=== PATIENT | female | born 1960 | race Caucasian/White ===

== ENCOUNTER 2016-05-31 20:09 | Emergency (ER) | payer BC ==
[~2016-05-31] VITALS: Ht 157.5 cm; Wt 116.2 kg
[~2016-05-31 20:09] MED LIST: ERGO1CAP35 PO; HYDR-5688 PO
[2016-05-31 20:13] VITALS: TEMP 36.9; Ht 157.5 cm; Wt 116.2 kg
[2016-05-31 21:20] LABS: BASO % 0.3 %; BASO ABS # 0.02 K/uL (0-0.2); COMPLETE YES; HEMATOCRIT 41.3 % (37-47); IG% 0.1 %; LYMPH % 32.1 %; LYMPH ABS # 2.52 K/uL (1.2-3.4); MEAN CORPUSCULAR HEMOGLOBIN 32.3 pg (25-34); MEAN CORPUSCULAR HGB CONC 35.1 g/dl (32-36); MEAN PLATELET VOLUME 9.4 fL (7.4-10.4); NEUT % 59.5 %; PLATELET COUNT 332 K/uL (130-400); RED BLOOD COUNT 4.49 M/uL (4.2-5.4); WHITE BLOOD COUNT 7.84 K/uL (4.8-10.8)
[2016-05-31 21:27] LABS: ALT/SGPT 27 U/L (12-78); BLOOD UREA NITROGEN 13 mg/dl (7-18); BUN/CREATININE RATIO 14.5 (10-20); CARBON DIOXIDE 30 mmol/L (21-32); CHLORIDE 106 mmol/L (98-107); CREATININE 0.87 mg/dl (0.60-1.20); GLUCOSE 96 mg/dl (70-99); POTASSIUM 3.5 mmol/L (3.5-5.1); SODIUM 141 mmol/L (136-145)
[2016-05-31 21:30] LABS: ALKALINE PHOSPHATASE 72 U/L (45-117); AST/SGOT 17 U/L (15-37)
[2016-05-31 21:45] LABS: MANUAL MICROSCOPIC REQUIRED? NO; URINE APPEARANCE CLEAR (CLEAR); URINE BILIRUBIN NEG (NEG); URINE COLOR YELLOW; URINE NITRITE NEG (NEG); URINE SPECIFIC GRAVITY >= 1.030 (1.000-1.030); UROBILINOGEN NEG (NEG)
[2016-05-31 21:46] LABS: REVIEW REQ? NO
--- NOTE | 2016-05-31 21:50 | DIAGNOSTIC IMAGING REPORT ---
CHEST AND ABDOMEN 2 VIEWS HISTORY: Left lower quadrant abdominal pain. COMPARISON: FINDINGS: No pneumothorax. No pleural effusions. The heart is normal in size. No focal lung consolidations to suggest pneumonia. A 7 mm nodular density within the periphery of the left upper lobe. No pneumoperitoneum. No pneumatosis. No renal or ureteral calculi. Punctate calcifications within the deep pelvis favor phleboliths but are nonspecific. The bowel gas pattern is unremarkable. No evidence for bowel obstruction. IMPRESSION: 1. No acute process within the chest. 2. Unremarkable bowel gas pattern. No evidence for bowel obstruction. 3. A 7 mm nodular density within the left upper lobe is likely due to the overlapping ribs. Follow-up nonemergent PA and lateral views of the chest is recommended for confirmation. Electronically signed by: Low Koehler M.D. 05/31/2016 9:48 PM Dictated Date/Time: 05/31/2016 9:43 PM
[2016-05-31 21:53] LABS: CALCIUM 9.1 mg/dl (8.5-10.1)
[2016-05-31 23:40] VITALS: BP 118/80; PULSE 78; O2SAT 97
--- NOTE | 2016-06-01 01:41 | EMERGENCY ROOM VISIT NOTE ---
History Report prepared by Krissy: Crystal Hooks Under the Supervision of: Dr. Reginaldo Ortega M.D. First contact with patient: 21:00 Chief Complaint: ABDOMINAL PAIN Stated Complaint: VAGINAL PAIN, PAIN LEFT SIDE, CONSTIPATED Nursing Triage Summary: see triage note History of Present Illness The patient is a 55 year old female who presents to the Emergency Room with complaints of worsening abdominal pain for the past 2 days. She has been constipated and bloated for the past 3 days, which she states is very unusual for her. She states "it feels like I got gas pocket." The patient states that today she started experiencing sharp pains shooting up from her vagina. She also reports burning with urination. She rates her pain as a 6/10 in severity. The patient denies vomiting, fever, and abnormal vaginal discharge. She is sexually active with her only. She had a colonoscopy a couple of years ago that was normal. She denies any history of diverticulitis or diverticulosis. Source of History: patient Onset: 2 days ago Position: abdomen Symptom Intensity: 6/10 Quality: other (bloated) Timing: worsening Associated Symptoms: + urinary symptoms, No fevers, No vomiting Note: Pt notes constipation. Pt denies abnormal vaginal discharge. Review of Systems See HPI for pertinent positives & negatives. A total of 10 systems reviewed and were otherwise negative. Past Medical & Surgical Medical Problems: (1) ASTHMA, UNSPECIFIED (2) DIAB SUNITA WO COMPL, TYPE II OR UNSPEC TYPE, NOT UNCNTRLD (3) Dysmetabolic Syndrome X (4) FAM HX-DIABETES MELLITUS (5) FAM HX-ISCHEM HEART DIS (6) FAM HX-NEUROLOG DIS NEC (7) FAM HX-OTH KIDNEY DISEASES (8) FAMILY HISTORY OF OTHER CARDIOVASCULAR DISEASES (9) FAMILY HISTORY OF OTHER CARDIOVASCULAR DISEASES (10) FAMILY HX-MALIGNANCY NOS (11) Fracture of great toe (12) HYPERTENSION NOS (13) Hypertension Nos (14) Kidney stone (15) Nondisplaced fracture of right great toe (16) Obesity, Nos (17) TOBACCO USE DISORDER Surgical Problems: (1) section (2) unspecified eye surgery Family History No pertinent history stated. Social History Smoking Status: Never Smoker Alcohol Use: none Marital Status: Housing Status: lives with family Occupation Status: employed Current/Historical Medications Scheduled Ergocalciferol (Vitamin D Cap), 50,000 INTER.UNIT PO WK Scheduled PRN Hydrocodone/Acetaminophen 5MG/325MG ([place] 5MG/325MG), 1 TABLET PO Q6H PRN for Pain Allergies Coded Allergies: Lactose Intolerance (Verified Allergy, Intermediate, GI SYMPTOMS, 05/01/13) Aspirin (Unverified Adverse Reaction, Unknown, MAKES ME SICK, 05/01/13) Physical Exam Vital Signs Date Time Temp Pulse Resp B/P Pulse Ox O2 Delivery O2 Flow Rate FiO2 05/31/16 23:40 78 20 118/80 97 Room Air 05/31/16 20:13 36.9 107 16 132/78 96 Room Air Physical Exam Constitutional: Vital signs reviewed. Eyes: Pupils are equal round reactive to light. Conjunctiva are noninjected. ENT: Pharynx is clear without erythema or exudate. Mucous membranes are moist. Neck supple without meningeal signs. Respiratory: Clear to auscultation bilaterally. Breath sounds are equal bilaterally. Cardiovascular: Regular rate and rhythm. No rubs or gallops. GI: Soft, nondistended and nontender. Bowel sounds are present. Musculoskeletal: No peripheral edema. Integumentary: No cyanosis. Neurological: The patient is awake and alert. No focal deficits. Psychiatric: Normal affect. Medical Decision & Procedures ER Provider Diagnostic Interpretation: Radiology results as stated below per my review and the radiologist's interpretation: CHEST AND ABDOMEN 2 VIEWS HISTORY: Left lower quadrant abdominal pain. COMPARISON: FINDINGS: No pneumothorax. No pleural effusions. The heart is normal in size. No focal lung consolidations to suggest pneumonia. A 7 mm nodular density within the periphery of the left upper lobe. No pneumoperitoneum. No pneumatosis. No renal or ureteral calculi. Punctate calcifications within the deep pelvis favor phleboliths but are nonspecific. The bowel gas pattern is unremarkable. No evidence for bowel obstruction. IMPRESSION: 1. No acute process within the chest. 2. Unremarkable bowel gas pattern. No evidence for bowel obstruction. 3. A 7 mm nodular density within the left upper lobe is likely due to the overlapping ribs. Follow-up nonemergent PA and lateral views of the chest is recommended for confirmation. Electronically signed by: Low Koehler M.D. 05/31/2016 9:48 PM Dictated Date/Time: 05/31/2016 9:43 PM Laboratory Results 05/31/16 20:44 Red Blood Count 4.49, Mean Corpuscular Volume 92.0, Mean Corpuscular Hemoglobin 32.3, Mean Corpuscular Hemoglobin Concent 35.1, Mean Platelet Volume 9.4, Neutrophils (%) (Auto) 59.5, Lymphocytes (%) (Auto) 32.1, Monocytes (%) (Auto) 6.0, Eosinophils (%) (Auto) 2.0, Basophils (%) (Auto) 0.3, Neutrophils # (Auto) 4.66, Lymphocytes # (Auto) 2.52, Monocytes # (Auto) 0.47, Eosinophils # (Auto) 0.16, Basophils # (Auto) 0.02 05/31/16 20:44 Test 05/31/16 20:44 05/31/16 20:45 White Blood Count 7.84 K/uL (4.8-10.8) Red Blood Count 4.49 M/uL (4.2-5.4) Hemoglobin 14.5 g/dL (12.0-16.0) Hematocrit 41.3 % (37-47) Mean Corpuscular Volume 92.0 fL (80-100) Mean Corpuscular Hemoglobin 32.3 pg (25-34) Mean Corpuscular Hemoglobin Concent 35.1 g/dl (32-36) Platelet Count 332 K/uL (130-400) Mean Platelet Volume 9.4 fL (7.4-10.4) Neutrophils (%) (Auto) 59.5 % Lymphocytes (%) (Auto) 32.1 % Monocytes (%) (Auto) 6.0 % Eosinophils (%) (Auto) 2.0 % Basophils (%) (Auto) 0.3 % Neutrophils # (Auto) 4.66 K/uL (1.4-6.5) Lymphocytes # (Auto) 2.52 K/uL (1.2-3.4) Monocytes # (Auto) 0.47 K/uL (0.11-0.59) Eosinophils # (Auto) 0.16 K/uL (0-0.5) Basophils # (Auto) 0.02 K/uL (0-0.2) RDW Standard Deviation 44.7 fL (36.4-46.3) RDW Coefficient of Variation 13.3 % (11.5-14.5) Immature Granulocyte % (Auto) 0.1 % Immature Granulocyte # (Auto) 0.01 K/uL (0.00-0.02) Anion Gap 5.0 mmol/L (3-11) Est Creatinine Clear Calc Drug Dose 89.3 ml/min Estimated GFR () 87.5 Estimated GFR (Non- 75.5 BUN/Creatinine Ratio 14.5 (10-20) Calcium Level 9.1 mg/dl (8.5-10.1) Total Bilirubin 0.2 mg/dl (0.2-1) Direct Bilirubin < 0.1 mg/dl (0-0.2) Aspartate Amino Transf (AST/SGOT) 17 U/L (15-37) Alanine Aminotransferase (ALT/SGPT) 27 U/L (12-78) Alkaline Phosphatase 72 U/L (45-117) Total Protein 7.5 gm/dl (6.4-8.2) Albumin 3.8 gm/dl (3.4-5.0) Lipase 193 U/L (73-393) Urine Color YELLOW Urine Appearance CLEAR (CLEAR) Urine pH 6.0 (4.5-7.5) Urine Specific [place] >= 1.030 (1.000-1.030) Urine Protein NEG (NEG) Urine Glucose (UA) NEG (NEG) Urine Ketones NEG (NEG) Urine Occult Blood NEG (NEG) Urine Nitrite NEG (NEG) Urine Bilirubin NEG (NEG) Urine Urobilinogen NEG (NEG) Urine Leukocyte Esterase NEG (NEG) Laboratory results as reviewed by me. ED Course 2100: The patient was evaluated in room C10. A complete history and physical exam was performed. 2259: I reassessed the patient at this time. She feels bloated and has cramping pain that feels like gas. She will be getting an enema. 2343: I reassessed the patient at this time. She had a small bowel movement and feels a little better. She urinated copiously and denies vaginal pain or burning with urination at this time. She does not wish to have a CT and wants to go home. I discussed the results and treatment plan with the patient. I answered all pertaining questions that she had. She expressed understanding and verbalized agreement. The patient will be discharged home. Medical Decision This is a 55-year-old female who presents with abdominal pain and dysuria. Differential diagnosis includes constipation, bowel obstruction, partial bowel obstruction, mass, diverticulitis, UTI. I did perform a limited focused review of portions of the patient's old chart on the electronic medical record. The patient has had no recent pertinent visits to this hospital. I did evaluate the patient as noted above. The patient is presenting with constipation for 3 days which she states is very abnormal for her. She has a gas-like pain in her left lower abdomen. She does not have any tenderness in that area to suggest acute surgical process. IV access was established. I did order and personally review the patient's abdominal and chest x-rays as described above. There is no evidence of obstruction. I did order and review the patient's blood work as noted in the electronic medical record. Her white blood cell count is not elevated. LFTs are unremarkable. I did order a urinalysis which shows no signs of infection. I did discuss the test results with the patient. I did order a soapsuds enema. She was given the enema and had a small bowel movement after which she stated she felt better but still had some gassy pain. She also stated that she urinated copiously and did not have any pain on urination. I did discuss the possibility of obtaining a CT scan of the abdomen but the patient wanted to go home. She stated that she would return should she have any worsening symptoms. She was advised follow closely with her doctor and continue MiraLAX at home as well as to eat light meals. She was discharged in good condition. Impression Primary Impression: Left sided abdominal pain Additional Impression: Constipation Scribe Attestation The scribe's documentation has been prepared under my direct and personally reviewed by me in its entirety. I confirm that the note above accurately reflects all work, treatment, procedures, and medical decision making performed by me. Departure Information Dispostion Home / Self-Care Referrals RV. Frederick MD (PCP) Forms Call Back Authorization, HOME CARE DOCUMENTATION FORM, IMPORTANT VISIT INFORMATION Patient Instructions Constipation, ED Abd Pain Unkn Cause Fem, My [facility] Additional Instructions You have been examined and treated today on an emergency basis only. This is not a substitute for, or an effort to provide, complete comprehensive medical care. It is impossible to recognize and treat all injuries or illnesses in a single emergency department visit. It is therefore important that you follow up closely with your physician. Call as soon as possible for an appointment. Return for worsening symptoms or if you develop fever, vomiting, or any other concerning symptoms. Take [id number] MiraLAX and eat light meals with lots of fluids. Problem Qualifiers Additional Impression: Constipation Constipation type: unspecified constipation type Qualified Codes: K59.00 - Constipation, unspecified
== END 2016-05-31 23:55 | disposition home or self-care (01) ==
LOC: C.EDB 20:10 → C.EDC 23:55
DX: R10.9 Unspecified abdominal pain (principal); K59.00 Constipation, unspecified; E11.9 Type 2 diabetes mellitus without complications; I10 Essential (primary) hypertension; J45.909 Unspecified asthma, uncomplicated; F17.200 Nicotine dependence, unspecified, uncomplicated; Z87.442 Personal history of urinary calculi; Z87.81 Personal history of (healed) traumatic fracture; Z98.890 Other specified postprocedural states; Z88.6 Allergy status to analgesic agent; Z91.011 Allergy to milk products

== ENCOUNTER → 2016-09-19 | Outpatient (CLI) | payer BC ==
[2016-09-19 13:40] LABS: BLOOD UREA NITROGEN 13 mg/dl (7-18); BUN/CREATININE RATIO 19.3 (10-20); CALCIUM 8.7 mg/dl (8.5-10.1); CARBON DIOXIDE 25 mmol/L (21-32); CHLORIDE 110 mmol/L (98-107); CREATININE 0.68 mg/dl (0.60-1.20); GLUCOSE 91 mg/dl (70-99); POTASSIUM 3.6 mmol/L (3.5-5.1); SODIUM 142 mmol/L (136-145)
[2016-09-19 13:51] LABS: CHOLESTEROL 238 mg/dl (0-200); CHOLESTEROL/HDL RATIO 4.6; HDL CHOLESTEROL 52 mg/dl; LDL CHOLESTEROL CALCULATED 161 mg/dl; TRIGLYCERIDES 127 mg/dl (0-150); VERY LOW DENSITY LIPOPROT CALC 25 mg/dl
== END | disposition home or self-care (01) ==
LOC: C.LAB1850 11:31
PROVIDERS: ATTEND Internal Medicine
DX: E53.8 Deficiency of other specified B group vitamins (principal); E55.9 Vitamin D deficiency, unspecified; Z11.59 Encounter for screening for other viral diseases; E78.5 Hyperlipidemia, unspecified; E88.81 Metabolic syndrome and other insulin resistance

== ENCOUNTER → 2016-10-31 | Outpatient (CLI) | payer BC | END | disposition home or self-care (01) | LOC: C.PAPS 14:58 | PROVIDERS: ATTEND Obstetrics & Gynecology | DX: Z01.419 Encounter for gynecological examination (general) (routine) without abnormal findings (principal) ==

== ENCOUNTER 2016-11-24 23:52 | Emergency (ER) | payer OTHER, BC ==
[~2016-11-24] VITALS: Ht 158.8 cm; Wt 121.3 kg
[2016-11-25 00:01] VITALS: TEMP 37.2; Ht 158.8 cm; Wt 121.3 kg
[2016-11-25] MEDS ORDERED: PROPARACAINE HCL 0.5% OP SOLN 15 ML BTL OP STA (00:07)
[2016-11-25] MEDS ORDERED: PROPARACAINE HCL 0.5% OP SOLN 15 ML BTL ONE (00:12)
[2016-11-25] MEDS ORDERED: CIPROFLOXACIN HCL 0.3% OP SOLN 2.5 ML BTL OP STA (00:23)
[2016-11-25] MEDS ORDERED: OXYCODONE IR HOME PACK PO ONE (00:30)
--- NOTE | 2016-11-25 00:34 | EMERGENCY ROOM VISIT NOTE ---
ED Visit Note First contact with patient: 00:07 CHIEF COMPLAINT: Eye pain HISTORY OF PRESENT ILLNESS: This 56 yo patient presents to the emergency department with daughter complaining of pain in the right eye after getting debris in it at work last night. This is a work-related injury. There has been a constant moderate pain and irritation, redness and tearing in the eye. There is a mild blurring of vision at times and light bothers the eye. The vision has clear been decreased over all. The patient does not wear contacts. The patient rates the pain as irritating and 6/10. The patient has not had previous injuries to this eye. Tetanus shot is up to date. REVIEW OF SYSTEMS: A 6 system review of systems was completed with positives and pertinent negatives listed in the HPI. ALLERGIES:ASA, reviewed MEDICATIONS:reviewed PMH: Medical Problems: (1) ASTHMA, UNSPECIFIED Status: Chronic (2) DIAB SUNITA WO COMPL, TYPE II OR UNSPEC TYPE, NOT UNCNTRLD Status: Chronic (3) Dysmetabolic Syndrome X Status: Chronic (4) FAM HX-DIABETES MELLITUS Status: Chronic (5) FAM HX-ISCHEM HEART DIS Status: Chronic (6) FAM HX-NEUROLOG DIS NEC Status: Chronic (7) FAM HX-OTH KIDNEY DISEASES Status: Chronic (8) FAMILY HISTORY OF OTHER CARDIOVASCULAR DISEASES Status: Chronic (9) FAMILY HISTORY OF OTHER CARDIOVASCULAR DISEASES Status: Chronic (10) FAMILY HX-MALIGNANCY NOS Status: Chronic (11) Fracture of great toe Status: Resolved (12) HYPERTENSION NOS Status: Chronic (13) Hypertension Nos Status: Chronic (14) Kidney stone Status: Resolved (15) Nondisplaced fracture of right great toe Status: Resolved (16) Obesity, Nos Status: Chronic (17) TOBACCO USE DISORDER Status: Resolved Surgical Problems: (1) section Status: Resolved (2) unspecified eye surgery Status: Resolved SOCIAL HISTORY: no drug use PHYSICAL EXAM: Vital Signs: Reviewed Nurse's notes, vital signs stable. Visual acuity reviewed from nursing. GENERAL: This is a pleasant female, in no acute distress, but who is uncomfortable from the eye problem. Well-developed well- nourished. EYES: The pupils are equal round and reactive to light and accommodation. EOMs are full and without tenderness. There is discharge of clear tears from the right eye which is injected. There is no foreign body visible under the eyelid even after lid eversion. Funduscopic exam reveals no hemorrhages, papilledema, or other abnormalities. No foreign body was seen embedded in the cornea under slit lamp exam. The cornea was clear and no hyphema was seen. Fluorescein uptake was observed with ultraviolet light significant for 2 corneal abrasions 2 mm, at 6:00 EMERGENCY DEPARTMENT COURSE: I examined the patient. Alcaine 2 drops were placed in the patient's right eye. A slit lamp exam was performed as above. Ciloxan two drops was placed in the patient's right eye. Patient was advised to follow-up with ophthalmology in a few days or here in the ER sooner for worsening signs or symptoms or as needed. The patient was discharged home in good condition. Patient states she is not allergic to Motrin. She just gets nauseous with aspirin. She takes Motrin on a routine basis. DIAGNOSIS: Corneal abrasion of the right eye DISCHARGE INSTRUCTIONS AND TREATMENT: Use Ciloxin two drops in right eye every two hours while awake for two days; then two drops every four hours while awake for 5 days. Oxycodone (OxyIR) 5mg: Take 1-2 pills every four hours for breakthrough pain. Avoid alcohol, operating machinery or dangerous equipment, working on ladders or roofs, DRIVING, or situations where being under the influence may be dangerous. It is recommended to use an ouuv-uat-iarkcbb stool softener such as Colace, 100mg twice daily while taking this medication to avoid constipation. Ibuprofen(Motrin, Advil) may be used for fever or pain. Use 600mg every six hours as needed. Take with food. Avoid using more than 2400mg in a 24 hour period. Do not use 2400mg per day for more than three consecutive days without physician direction. Prolonged inappropriate use can lead to stomach upset or ulcers. This medication can be taken if you need to drive, work, or perform activities which may be dangerous when taking narcotic pain medication. (AND/OR) Acetaminophen(Tylenol) may be used for fever or pain. Use 1000mg every six hours as needed. Avoid using more than 3000mg in a 24 hour period. This medication can be taken if you need to drive, work, or perform activities which may be dangerous when taking narcotic pain medication. Follow-up with ophthalmology in 2-3 days for a recheck. Return to the ED for increasing pain or changes in vision. Problem List Medical Problems: (1) ASTHMA, UNSPECIFIED Status: Chronic (2) DIAB SUNITA WO COMPL, TYPE II OR UNSPEC TYPE, NOT UNCNTRLD Status: Chronic (3) Dysmetabolic Syndrome X Status: Chronic (4) FAM HX-DIABETES MELLITUS Status: Chronic (5) FAM HX-ISCHEM HEART DIS Status: Chronic (6) FAM HX-NEUROLOG DIS NEC Status: Chronic (7) FAM HX-OTH KIDNEY DISEASES Status: Chronic (8) FAMILY HISTORY OF OTHER CARDIOVASCULAR DISEASES Status: Chronic (9) FAMILY HISTORY OF OTHER CARDIOVASCULAR DISEASES Status: Chronic (10) FAMILY HX-MALIGNANCY NOS Status: Chronic (11) Fracture of great toe Status: Resolved (12) HYPERTENSION NOS Status: Chronic (13) Hypertension Nos Status: Chronic (14) Kidney stone Status: Resolved (15) Nondisplaced fracture of right great toe Status: Resolved (16) Obesity, Nos Status: Chronic (17) TOBACCO USE DISORDER Status: Resolved Surgical Problems: (1) section Status: Resolved (2) unspecified eye surgery Status: Resolved Current/Historical Medications Scheduled Ergocalciferol (Vitamin D Cap), 50,000 INTER.UNIT PO WK Scheduled PRN Hydrocodone/Acetaminophen 5MG/325MG ([place] 5MG/325MG), 1 TABLET PO Q6H PRN for Pain Allergies Coded Allergies: Lactose Intolerance (Verified Allergy, Intermediate, GI SYMPTOMS, 05/01/13) Aspirin (Unverified Adverse Reaction, Unknown, MAKES ME SICK, 05/01/13) Vital Signs Date Time Temp Pulse Resp B/P (MAP) Pulse Ox O2 Delivery O2 Flow Rate FiO2 11/25/16 00:01 37.2 109 18 139/108 97 Room Air Departure Information Referrals RV. Frederick MD (PCP) Patient Instructions [facility]
[2016-11-25 00:53] VITALS: BP 129/85; PULSE 104; O2SAT 98
== END 2016-11-25 00:55 | disposition home or self-care (01) ==
LOC: C.EDB 23:53
DX: S05.01XA Injury of conjunctiva and corneal abrasion without foreign body, right eye, initial encounter (principal); X58.XXXA Exposure to other specified factors, initial encounter; J45.909 Unspecified asthma, uncomplicated; E11.9 Type 2 diabetes mellitus without complications; I10 Essential (primary) hypertension; E66.9 Obesity, unspecified; Z87.440 Personal history of urinary (tract) infections; Z98.891 History of uterine scar from previous surgery; Z98.890 Other specified postprocedural states; Z83.3 Family history of diabetes mellitus; Z82.49 Family history of ischemic heart disease and other diseases of the circulatory system; Z82.0 Family history of epilepsy and other diseases of the nervous system

== ENCOUNTER 2017-04-28 22:42 | Emergency (ER) | payer BC, OTHER ==
[~2017-04-28] VITALS: Ht 157.5 cm; Wt 122.4 kg
[2017-04-28 22:45] VITALS: TEMP 37.3; Ht 157.5 cm; Wt 122.4 kg
[2017-04-28] MEDS ORDERED: MULT1CAP3 PO (23:04)
--- NOTE | 2017-04-28 23:39 | EMERGENCY ROOM VISIT NOTE ---
ED Visit Note First contact with patient: 23:01 CHIEF COMPLAINT: Toe injury HISTORY OF PRESENT ILLNESS: This patient is a 56-year-old female that presents to the emergency department complaining of an injury to the right fifth toe that she sustained when she accidentally kicked a heavy object last night. She reports difficulty walking. She denies any other injuries. She is concerned because she had surgery on this foot for years ago. REVIEW OF SYSTEMS: Skin: No rash, new lesions, or masses. General: No fever or chills, fatigue, loss of appetite, or significant recent weight gain or loss. PMH: Borderline diabetes SOCIAL HISTORY: Patient lives at home. Positive for tobacco use PHYSICAL EXAM: Vital Signs: Reviewed Nurse's notes. The ankle joint is not swollen or tender. The foot is not swollen and the skin is intact. The right fifth toe is swollen and tender along the shaft from the PIP joint to the tip in the nail. There is no active bleeding and no laceration. Mild tenderness over the fifth MTP joint EMERGENCY DEPARTMENT COURSE: An X-ray of the toe was reviewed by myself. It is consistent with a nondisplaced fracture of the proximal phalanx. The findings were discussed with the patient. She voiced understanding, was comfortable being discharged home. The affected toe was laurita taped to the adjacent toe to provide some immobilization. DIAGNOSIS: Toe fracture DISCHARGE INSTRUCTIONS & TREATMENT: Stay off the foot as much as possible and keep it elevated. Apply ice to the swollen toe frequently today. Keep it laurita taped. Please alternate Tylenol 1000 mg with Motrin 800 mg every 4 hours as needed for pain. Please follow-up with an orthopedic doctor or your primary care physician if there is no improvement in 7 days. Please do not hesitate to return to the emergency department with any new or worsening symptoms. It was a pleasure participating in your care today This chart was completed in part utilizing [employer] Speech Voice Recognition software. Attempts were made to minimize the grammatical errors, random word insertions, pronoun errors and incomplete sentences. Any formal questions or concerns about the content, text or information contained within the body of this dictation should be directly addressed to the provider for clarification.
[2017-04-29 00:37] VITALS: BP 107/76; PULSE 82; O2SAT 96
--- NOTE | 2017-04-29 07:41 | DIAGNOSTIC IMAGING REPORT ---
RIGHT FIFTH TOE 3 VIEWS HISTORY: R 5th toe pain COMPARISON: None. FINDINGS: There is an essentially nondisplaced transverse fracture through the proximal shaft of the proximal phalanx of the right fifth toe. No dislocation. This does not extend to the articular surface. Soft tissue swelling. No radiopaque foreign bodies. IMPRESSION: Nondisplaced fracture at the proximal shaft of the right fifth toe proximal phalanx. Electronically signed by: Low Koehler M.D. 04/29/2017 7:40 AM Dictated Date/Time: 04/29/2017 7:39 AM
== END 2017-04-29 00:37 | disposition home or self-care (01) ==
LOC: C.EDB 22:43 → C.EDA 04-29 00:37
DX: S92.515A Nondisplaced fracture of proximal phalanx of left lesser toe(s), initial encounter for closed fracture (principal); W22.8XXA Striking against or struck by other objects, initial encounter; R73.03 Prediabetes; Z72.0 Tobacco use